=== PATIENT | female | born 1945 | race Caucasian/White ===

== ENCOUNTER 2020-06-26 14:08 | Inpatient (IN) | payer MEDICARE ==
[2020-06-26] MEDS ORDERED: Ondansetron PF 4 MG/2 ML Vial IVP PRN (14:28)
[2020-06-26] MEDS ORDERED: Ondansetron ODT 4 MG TAB PO PRN (14:28)
[2020-06-26] MEDS ORDERED: Acetaminophen 650 MG Suppository PR PRN (14:28)
[2020-06-26] MEDS ORDERED: Magnesium 2 GM/50 ML 2 GM in Premix Bag 1 BAG IVPB SCH (15:00)
[2020-06-26] MEDS: cefTRIAXone\\ROCEPHIN 1 GM in Sodium Chloride 0.9% 100 ML IVPB SCH (15:23)
[2020-06-26 15:29] LABS: Hemoglobin 11.8 g/dL (12.0-16.0); Mean Corpuscular Hemoglobin 30.8 pg (27.0-31.0); Mean Corpuscular Volume 93.5 fL (78.0-98.0); Mean Platelet Volume 6.1 fL (7.4-10.4); Platelet Count 346 thou/uL (130-400); RBC Distribution Width 12.4 % (11.5-14.5); Red Blood Cell (RBC) Count 3.83 mill/uL (4.20-5.40); White Blood Cell (WBC) Count 22.3 thou/uL (4.8-10.8)
[2020-06-26 15:32] LABS: Anion Gap 18 mmol/L (10-20); BUN (Urea Nitrogen) 14 mg/dL (9.8-20.1); Calc. Creatinine Clearance 48 mL/min (70-130); Calcium 8.4 mg/dL (7.8-10.44); Carbon Dioxide 20 mmol/L (23-31); Chloride 104 mmol/L (98-107); Glucose 129 mg/dL (83-110); Magnesium 1.9 mg/dL (1.6-2.6); Sodium 139 mmol/L (136-145)
[2020-06-26 15:37] LABS: Potassium 2.9 mmol/L (3.5-5.1)
[2020-06-26 15:40] LABS: Band 6 % (5-11); Lymphocytes 5 % (21-51); MDiff Complete? YES; Monocytes 1 % (0-10); Neutrophil 88 % (42-75); Platelet Morphology Comment Appears Adequate; RBC Morphology Normal
[2020-06-26] MEDS: Sodium Chloride 0.9% 1,000 ML IV SCH (16:34)
[2020-06-26] MEDS ORDERED: Electrolyte Replacement Protocol FS SCH (16:45)
[2020-06-26] MEDS ORDERED: Potassium Phosphate 30 MMOL in Sodium Chloride 0.9% 250 ML 250 ML IVPB SCH (17:00)
[2020-06-26 22:27] LABS: SARS-CoV-2 PCR by NAA Not Detected (NotDetected)
[2020-06-27 04:58] LABS: #Eosinphils 0.1 thou/uL (0.0-0.7); #Lymphocytes 1.3 thou/uL (1.20-3.40); #Monocytes 0.4 thou/uL (0.11-0.59); %Basophils 0.4 % (0.0-1.0); %Eosinophils 0.7 % (0.0-10.0); %Lymphocytes 11.7 % (21.0-51.0); %Monocytes 3.6 % (0.0-10.0); %Neutrophils 83.5 % (42.0-75.0); Hemoglobin 10.9 g/dL (12.0-16.0); Mean Corpuscular HGB CONC 33.8 g/dL (32.0-36.0); Mean Corpuscular Hemoglobin 31.7 pg (27.0-31.0); Mean Corpuscular Volume 93.8 fL (78.0-98.0); Mean Platelet Volume 6.2 fL (7.4-10.4); Platelet Count 341 thou/uL (130-400); RBC Distribution Width 12.6 % (11.5-14.5); Red Blood Cell (RBC) Count 3.45 mill/uL (4.20-5.40); White Blood Cell (WBC) Count 10.8 thou/uL (4.8-10.8)
[2020-06-27 05:11] LABS: Anion Gap 16 mmol/L (10-20); BUN (Urea Nitrogen) 11 mg/dL (9.8-20.1); Calc. Creatinine Clearance 54 mL/min (70-130); Calcium 7.8 mg/dL (7.8-10.44); Carbon Dioxide 19 mmol/L (23-31); Chloride 108 mmol/L (98-107); Glucose 105 mg/dL (83-110); Sodium 140 mmol/L (136-145)
[2020-06-27 05:13] LABS: Phosphorus 2.8 mg/dL (2.3-4.7)
[2020-06-27 05:14] LABS: ALT (SGPT) 14 U/L (8-55); AST (SGOT) 30 U/L (5-34); Albumin 3.2 g/dL (3.4-4.8); Alkaline Phosphatase 43 U/L (40-110); Bilirubin, Direct 0.1 mg/dL (0.1-0.3); Bilirubin, Total 0.3 mg/dL (0.2-1.2); Magnesium 2.2 mg/dL (1.6-2.6); Protein, Total 5.2 g/dL (5.8-8.1)
[2020-06-27] MEDS: Potassium Chloride 20 MEQ in Premix Bag 1 BAG IVPB SCH ×2 (06:40→09:04)
[2020-06-27] MEDS ORDERED: Potassium Chloride 20 MEQ TAB PO SCH (09:00)
[2020-06-27] MEDS ORDERED: FLU VACC QS2020-21(65YR UP)/PF 240 MCG/0.7 ML SYRINGE IM ONE (09:00)
[2020-06-27] MEDS: Sodium Chloride 0.9% 1,000 ML IV SCH ×2 (09:14→22:06)
[2020-06-27] MEDS: Acetaminophen 325 MG TAB PO PRN (11:26)
[2020-06-27] MEDS ORDERED: Promethazine HCl 12.5 MG in Sodium Chloride 0.9% 50 ML IVPB PRN (12:42)
[2020-06-27] MEDS ORDERED: Pantoprazole 40 MG VIAL IVP SCH (13:15)
[2020-06-27] MEDS ORDERED: Docusate 100 MG CAP PO SCH (13:15)
[2020-06-27] MEDS ORDERED: Enoxaparin Sodium 40 MG/0.4 ML SYRINGE SC SCH (13:15)
[2020-06-27] MEDS ORDERED: Metamucil PACK PO SCH (13:15)
[2020-06-27 13:45] LABS: Anion Gap 18 mmol/L (10-20); BUN (Urea Nitrogen) 9 mg/dL (9.8-20.1); Calc. Creatinine Clearance 59 mL/min (70-130); Calcium 7.7 mg/dL (7.8-10.44); Carbon Dioxide 16 mmol/L (23-31); Chloride 105 mmol/L (98-107); Glucose 109 mg/dL (83-110); Potassium 4.4 mmol/L (3.5-5.1); Sodium 135 mmol/L (136-145)
[2020-06-27] MEDS: cefTRIAXone\\ROCEPHIN 1 GM in Sodium Chloride 0.9% 100 ML IVPB SCH (16:04)
[2020-06-27] MEDS ORDERED: Dronabinol 2.5 MG CAP PO SCH (16:30)
[2020-06-27] MEDS ORDERED: diphenhydrAMINE 50 MG/ML VIAL IVP SCH (19:45)
[2020-06-27] MEDS ORDERED: methylPREDNISolone Sod Succ 40 MG VIAL IVP SCH (19:45)
[2020-06-27] MEDS: Docusate 100 MG CAP PO SCH (22:02)
[2020-06-28 02:53] LABS: Bacteria/HPF None Seen HPF (None Seen); Bilirubin Negative (Negative); Blood, Urine Negative (Negative); Clarity Clear (Clear); Glucose, Urine (Dipstick) Normal (Negative); Ketone, Urine 40 mg/dL (Negative); Leukocyte 500 Leu/uL (Negative); Nitrite Negative (Negative); Protein, Urine (Dipstick) 30 mg/dL (Neg-Trace); Specific Gravity, Urine 1.021 (1.002-1.036); Squamous Epithelial 0-3 HPF (0-3); Urobilinogen Normal mg/dL (Less than 2); WBC/HPF 21-50 HPF (0-3)
[2020-06-28 04:50] LABS: #Lymphocytes 0.5 thou/uL (1.20-3.40); #Monocytes 0.1 thou/uL (0.11-0.59); #Neutrophils 10.1 thou/uL (1.40-6.50); %Eosinophils 0.1 % (0.0-10.0); %Lymphocytes 4.9 % (21.0-51.0); %Monocytes 0.5 % (0.0-10.0); %Neutrophils 94.5 % (42.0-75.0); Hemoglobin 10.9 g/dL (12.0-16.0); Mean Corpuscular HGB CONC 34.7 g/dL (32.0-36.0); Mean Corpuscular Hemoglobin 32.8 pg (27.0-31.0); Mean Corpuscular Volume 94.3 fL (78.0-98.0); Platelet Count 270 thou/uL (130-400); RBC Distribution Width 12.8 % (11.5-14.5); Red Blood Cell (RBC) Count 3.33 mill/uL (4.20-5.40); White Blood Cell (WBC) Count 10.6 thou/uL (4.8-10.8)
[2020-06-28 05:11] LABS: Anion Gap 14 mmol/L (10-20); BUN (Urea Nitrogen) 7 mg/dL (9.8-20.1); Calc. Creatinine Clearance 65 mL/min (70-130); Calcium 7.4 mg/dL (7.8-10.44); Carbon Dioxide 19 mmol/L (23-31); Chloride 107 mmol/L (98-107); Glucose 137 mg/dL (83-110); Magnesium 1.5 mg/dL (1.6-2.6); Potassium 3.9 mmol/L (3.5-5.1); Sodium 136 mmol/L (136-145)
[2020-06-28 05:20] LABS: Phosphorus 2.1 mg/dL (2.3-4.7)
[2020-06-28] MEDS ORDERED: Magnesium 2 GM/50 ML 2 GM in Premix Bag 1 BAG IVPB SCH (06:30)
[2020-06-28] MEDS: Sodium Chloride 0.9% 1,000 ML IV SCH ×2 (07:29→21:16)
[2020-06-28] MEDS: Pantoprazole 40 MG VIAL IVP SCH (08:24)
[2020-06-28] MEDS: Enoxaparin Sodium 40 MG/0.4 ML SYRINGE SC SCH (08:25)
[2020-06-28] MEDS: Docusate 100 MG CAP PO SCH ×2 (08:25→21:15)
[2020-06-28] MEDS: Famotidine/PF 20 mg/2ml Vial SLOW IVP SCH (08:25)
[2020-06-28] MEDS: Metamucil PACK PO SCH (08:26)
[2020-06-28] MEDS ORDERED: Sodium Phosphate 30 MMOL in Sodium Chloride 0.9% 250 ML 250 ML IVPB SCH (08:45)
[2020-06-28] MEDS ORDERED: Magnesium Sulfate 2 GM in Sodium Chloride 0.9% 100 ML IVPB SCH (08:45)
[2020-06-28] MEDS: MEROPENEM 1 GM/50 ML 1 GM in Premix Bag 1 BAG IVPB SCH ×2 (10:21→17:49)
[2020-06-28] MEDS: Lorazepam 2 MG/ML VIAL SLOW IVP PRN (20:52)
[2020-06-28] MEDS ORDERED: Sodium Chloride 0.9% 500 ML IV SCH (22:45)
[2020-06-29] MEDS ORDERED: Sodium Chloride 0.9% 500 ML IV SCH ×2 (01:30→21:00)
[2020-06-29] MEDS ORDERED: Metoprolol Tartrate 5 MG/5 ML VIAL IVP SCH ×2 (01:30→18:45)
[2020-06-29] MEDS: MEROPENEM 1 GM/50 ML 1 GM in Premix Bag 1 BAG IVPB SCH ×3 (03:29→17:29)
[2020-06-29 04:51] LABS: #Eosinphils 0.5 thou/uL (0.0-0.7); #Lymphocytes 0.7 thou/uL (1.20-3.40); #Monocytes 0.3 thou/uL (0.11-0.59); #Neutrophils 9.3 thou/uL (1.40-6.50); %Basophils 0.1 % (0.0-1.0); %Eosinophils 4.7 % (0.0-10.0); %Lymphocytes 6.7 % (21.0-51.0); %Monocytes 2.6 % (0.0-10.0); %Neutrophils 85.9 % (42.0-75.0); Hemoglobin 11.1 g/dL (12.0-16.0); Mean Corpuscular HGB CONC 33.7 g/dL (32.0-36.0); Mean Corpuscular Hemoglobin 32.2 pg (27.0-31.0); Mean Corpuscular Volume 95.4 fL (78.0-98.0); Platelet Count 267 thou/uL (130-400); RBC Distribution Width 12.8 % (11.5-14.5); Red Blood Cell (RBC) Count 3.47 mill/uL (4.20-5.40); White Blood Cell (WBC) Count 10.8 thou/uL (4.8-10.8)
[2020-06-29 05:01] LABS: Anion Gap 13 mmol/L (10-20); BUN (Urea Nitrogen) 9 mg/dL (9.8-20.1); Calc. Creatinine Clearance 65 mL/min (70-130); Calcium 7.6 mg/dL (7.8-10.44); Carbon Dioxide 21 mmol/L (23-31); Chloride 106 mmol/L (98-107); Glucose 110 mg/dL (83-110); Magnesium 1.7 mg/dL (1.6-2.6); Sodium 137 mmol/L (136-145)
[2020-06-29 05:03] LABS: Phosphorus 1.9 mg/dL (2.3-4.7)
[2020-06-29] MEDS ORDERED: PHOS-NAK 1 PKT PACK PO SCH (06:00)
[2020-06-29] MEDS ORDERED: Potassium Chloride 20 MEQ TAB PO SCH (06:00)
[2020-06-29] MEDS ORDERED: Potassium Bicarbonate/Cit Ac 20 MEQ TAB PO SCH (06:15)
[2020-06-29] MEDS ORDERED: Magnesium 2 GM/50 ML 2 GM in Premix Bag 1 BAG IVPB SCH ×2 (06:45→08:45)
[2020-06-29] MEDS: Pantoprazole 40 MG VIAL IVP SCH (08:24)
[2020-06-29] MEDS: Famotidine/PF 20 mg/2ml Vial SLOW IVP SCH (08:24)
[2020-06-29] MEDS: PHOS-NAK 1 PKT PACK PO SCH ×2 (08:24→12:44)
[2020-06-29] MEDS: Docusate 100 MG CAP PO SCH ×2 (08:24→21:14)
[2020-06-29 09:14] LABS: Lactic Acid 2.6 mmol/L (0.5-2.2)
[2020-06-29] MEDS: Metamucil PACK PO SCH (09:51)
[2020-06-29] MEDS: Potassium Chloride 10 MEQ in Premix Bag 1 BAG IVPB SCH ×4 (09:52→16:03)
[2020-06-29] MEDS: Enoxaparin Sodium 40 MG/0.4 ML SYRINGE SC SCH (09:55)
[2020-06-29] MEDS: Sodium Chloride 0.9% 1,000 ML IV SCH ×3 (10:10→22:55)
[2020-06-29 15:22] LABS: Lactic Acid 2.2 mmol/L (0.5-2.2)
[2020-06-29] MEDS ORDERED: diphenhydrAMINE 10 MG in Sodium Chloride 0.9% 50 ML IVPB SCH (16:15)
[2020-06-29] MEDS: Lorazepam 2 MG/ML VIAL SLOW IVP PRN (17:31)
[2020-06-29 19:02] LABS: Anion Gap 15 mmol/L (10-20); BUN (Urea Nitrogen) 7 mg/dL (9.8-20.1); CK (CPK) 124 U/L (29-168); Calc. Creatinine Clearance 66 mL/min (70-130); Calcium 7.4 mg/dL (7.8-10.44); Carbon Dioxide 21 mmol/L (23-31); Chloride 103 mmol/L (98-107); Glucose 103 mg/dL (83-110); Potassium 3.8 mmol/L (3.5-5.1); Sodium 135 mmol/L (136-145); Troponin I 0.184 ng/mL (< 0.028)
[2020-06-29] MEDS ORDERED: methylPREDNISolone Sod Succ/PF 125 MG/2 ML VIAL IVP SCH (20:00)
[2020-06-29] MEDS ORDERED: diphenhydrAMINE 50 MG/ML VIAL IVP SCH (20:15)
[2020-06-29 20:26] LABS: Free T4 (Free Thyroxine) 1.16 ng/dL (0.70-1.48); Thyroid Stimulating Hormone 3.3239 uIU/mL (0.35-4.94)
[2020-06-29 20:43] LABS: Lactic Acid 2.7 mmol/L (0.5-2.2)
[2020-06-29] MEDS ORDERED: EPINEPHrine 1 MG/ML AMP IM ONE (21:15)
[2020-06-29 21:52] LABS: Lactic Acid 2.4 mmol/L (0.5-2.2)
[2020-06-29] MEDS ORDERED: Sodium Chloride 0.9% 1,000 ML IV SCH (22:30)
[2020-06-30 01:26] LABS: Troponin I 0.231 ng/mL (< 0.028)
[2020-06-30 05:00] LABS: #Lymphocytes 0.4 thou/uL (1.20-3.40); #Monocytes 0.1 thou/uL (0.11-0.59); #Neutrophils 7.3 thou/uL (1.40-6.50); %Eosinophils 0.4 % (0.0-10.0); %Lymphocytes 5.4 % (21.0-51.0); %Monocytes 0.6 % (0.0-10.0); %Neutrophils 93.6 % (42.0-75.0); Mean Corpuscular HGB CONC 34.3 g/dL (32.0-36.0); Mean Corpuscular Hemoglobin 32.5 pg (27.0-31.0); Mean Corpuscular Volume 94.7 fL (78.0-98.0); Mean Platelet Volume 6.4 fL (7.4-10.4); Platelet Count 213 thou/uL (130-400); Red Blood Cell (RBC) Count 2.77 mill/uL (4.20-5.40); White Blood Cell (WBC) Count 7.8 thou/uL (4.8-10.8)
[2020-06-30 05:24] LABS: Anion Gap 12 mmol/L (10-20); BUN (Urea Nitrogen) 6 mg/dL (9.8-20.1); Calc. Creatinine Clearance 69 mL/min (70-130); Calcium 6.4 mg/dL (7.8-10.44); Carbon Dioxide 21 mmol/L (23-31); Chloride 105 mmol/L (98-107); Glucose 150 mg/dL (83-110); Sodium 135 mmol/L (136-145)
[2020-06-30 05:31] LABS: Potassium 2.9 mmol/L (3.5-5.1)
[2020-06-30] MEDS: Sodium Chloride 0.9% 1,000 ML IV SCH ×4 (05:35→23:57)
[2020-06-30] MEDS ORDERED: Magnesium 2 GM/50 ML 2 GM in Premix Bag 1 BAG IVPB SCH ×2 (06:15→11:15)
[2020-06-30] MEDS ORDERED: Potassium Chloride 40 MEQ in Sodium Chloride 0.9% 250 ML 250 ML IVPB SCH (06:30)
[2020-06-30] MEDS ORDERED: Potassium Chloride 20 MEQ TAB PO SCH (08:00)
[2020-06-30] MEDS ORDERED: Calcium Gluconate 4.6 MEQ in Sodium Chloride 0.9% 100 ML IVPB SCH (08:03)
[2020-06-30] MEDS: Pantoprazole 40 MG VIAL IVP SCH (08:50)
[2020-06-30] MEDS: Docusate 100 MG CAP PO SCH ×2 (08:50→20:32)
[2020-06-30] MEDS: Famotidine/PF 20 mg/2ml Vial SLOW IVP SCH (08:50)
[2020-06-30] MEDS: Enoxaparin Sodium 40 MG/0.4 ML SYRINGE SC SCH (08:50)
[2020-06-30] MEDS: Metamucil PACK PO SCH (08:51)
[2020-06-30 09:27] LABS: Lactic Acid 1.9 mmol/L (0.5-2.2)
[2020-06-30 09:29] LABS: Troponin I 0.137 ng/mL (< 0.028)
[2020-06-30] MEDS: Acetaminophen 325 MG TAB PO PRN (09:35)
[2020-06-30] MEDS: Potassium Chloride 10 MEQ in Premix Bag 1 BAG IVPB SCH ×4 (10:40→14:28)
[2020-06-30] MEDS ORDERED: Midodrine HCl 5 MG TAB PO SCH ×4 (10:40→16:45)
[2020-06-30] MEDS ORDERED: Magnesium Sulfate 2 GM in Sodium Chloride 0.9% 100 ML IVPB SCH (10:45)
[2020-06-30] MEDS ORDERED: Sodium Chloride 0.9% 500 ML IV SCH (16:15)
[2020-06-30] MEDS: Midodrine HCl 5 MG TAB PO SCH (20:33)
[2020-07-01] MEDS: Acetaminophen 325 MG TAB PO PRN ×2 (01:04→10:20)
[2020-07-01] MEDS: Lorazepam 2 MG/ML VIAL SLOW IVP PRN ×2 (02:29→22:00)
[2020-07-01] MEDS: Sodium Chloride 0.9% 1,000 ML IV SCH ×3 (05:58→19:10)
[2020-07-01] MEDS: Enoxaparin Sodium 40 MG/0.4 ML SYRINGE SC SCH (08:21)
[2020-07-01] MEDS: Pantoprazole 40 MG VIAL IVP SCH (08:21)
[2020-07-01] MEDS: Famotidine/PF 20 mg/2ml Vial SLOW IVP SCH (08:21)
[2020-07-01] MEDS: Midodrine HCl 5 MG TAB PO SCH ×3 (08:21→21:00)
[2020-07-01] MEDS: Docusate 100 MG CAP PO SCH ×2 (08:22→21:00)
[2020-07-01] MEDS: Metamucil PACK PO SCH (08:22)
[2020-07-01 08:42] LABS: #Eosinphils 0.5 thou/uL (0.0-0.7); #Monocytes 0.2 thou/uL (0.11-0.59); #Neutrophils 5.6 thou/uL (1.40-6.50); %Basophils 0.1 % (0.0-1.0); %Eosinophils 7.1 % (0.0-10.0); %Lymphocytes 13.3 % (21.0-51.0); %Monocytes 3.2 % (0.0-10.0); %Neutrophils 76.4 % (42.0-75.0); Hemoglobin 10.9 g/dL (12.0-16.0); Mean Corpuscular HGB CONC 33.2 g/dL (32.0-36.0); Mean Corpuscular Volume 96.3 fL (78.0-98.0); Mean Platelet Volume 5.9 fL (7.4-10.4); Platelet Count 310 thou/uL (130-400); RBC Distribution Width 13.2 % (11.5-14.5); White Blood Cell (WBC) Count 7.3 thou/uL (4.8-10.8)
[2020-07-01 08:59] LABS: Anion Gap 13 mmol/L (10-20); BUN (Urea Nitrogen) 4 mg/dL (9.8-20.1); Calc. Creatinine Clearance 85 mL/min (70-130); Carbon Dioxide 17 mmol/L (23-31); Chloride 109 mmol/L (98-107); Glucose 129 mg/dL (83-110); Potassium 4.1 mmol/L (3.5-5.1); Sodium 135 mmol/L (136-145)
[2020-07-01] MEDS: methylPREDNISolone Sod Succ 40 MG VIAL IVP SCH (21:15)
[2020-07-02] MEDS: methylPREDNISolone Sod Succ 40 MG VIAL IVP SCH ×2 (06:18→15:11)
[2020-07-02] MEDS: Enoxaparin Sodium 40 MG/0.4 ML SYRINGE SC SCH (08:53)
[2020-07-02] MEDS: Docusate 100 MG CAP PO SCH ×2 (08:53→21:17)
[2020-07-02] MEDS: Metamucil PACK PO SCH (08:53)
[2020-07-02] MEDS: Midodrine HCl 5 MG TAB PO SCH ×3 (08:53→21:17)
[2020-07-02] MEDS: Pantoprazole 40 MG VIAL IVP SCH (08:54)
[2020-07-02] MEDS: Sodium Chloride 0.9% 1,000 ML IV SCH (15:11)
[2020-07-02] MEDS ORDERED: predniSONE 20 MG TAB PO SCH (16:15)
[2020-07-02] MEDS: Lorazepam 2 MG/ML VIAL SLOW IVP PRN (21:17)
[2020-07-03] MEDS ORDERED: predniSONE 5 MG TAB PO SCH (08:00)
[2020-07-03] MEDS: Enoxaparin Sodium 40 MG/0.4 ML SYRINGE SC SCH (08:25)
[2020-07-03] MEDS: Docusate 100 MG CAP PO SCH ×2 (08:25→20:12)
[2020-07-03] MEDS: Midodrine HCl 5 MG TAB PO SCH ×3 (08:25→20:11)
[2020-07-03] MEDS: Pantoprazole 40 MG VIAL IVP SCH (08:26)
[2020-07-03 10:44] VITALS: BMI 24.5
[2020-07-03] MEDS: Metamucil PACK PO SCH (11:48)
[2020-07-03] MEDS ORDERED: Ondansetron ODT 4 MG TAB PO PRN (20:42)
[2020-07-03] MEDS ORDERED: Lorazepam 1 MG TAB PO PRN (20:43)
[2020-07-04] MEDS: Docusate 100 MG CAP PO SCH (09:41)
[2020-07-04] MEDS: Midodrine HCl 5 MG TAB PO SCH (09:44)
[2020-07-04] MEDS: Metamucil PACK PO SCH (09:45)
[2020-07-04] MEDS: Enoxaparin Sodium 40 MG/0.4 ML SYRINGE SC SCH (09:45)
[2020-07-04 11:17] VITALS: TEMP 98.1
[2020-07-04 17:03] VITALS: BP 103/67
== END 2020-07-04 14:21 | disposition home or self-care (01) | DRG 871 ==
LOC: 2NO 14:08 → IMCU/EMU 06-30 21:50 → T4-A 07-01 20:20
PROVIDERS: ADMIT Internal Medicine; ATTEND Internal Medicine
DX: A41.9 Sepsis, unspecified organism (principal); G93.41 Metabolic encephalopathy; E43 Unspecified severe protein-calorie malnutrition; E87.2 Acidosis; Z68.24 Body mass index [BMI] 24.0-24.9, adult; F05 Delirium due to known physiological condition; D64.9 Anemia, unspecified; N30.00 Acute cystitis without hematuria; Z20.822 Contact with and (suspected) exposure to COVID-19; E86.0 Dehydration; Z96.641 Presence of right artificial hip joint; G30.9 Alzheimer's disease, unspecified; F02.80 Dementia in other diseases classified elsewhere, unspecified severity, without behavioral disturbance, psychotic disturbance, mood disturbance, and anxiety; R11.2 Nausea with vomiting, unspecified; E87.6 Hypokalemia; E83.42 Hypomagnesemia; K80.20 Calculus of gallbladder without cholecystitis without obstruction; R65.20 Severe sepsis without septic shock; L27.1 Localized skin eruption due to drugs and medicaments taken internally; R00.0 Tachycardia, unspecified; T36.1X5A Adverse effect of cephalosporins and other beta-lactam antibiotics, initial encounter; I95.2 Hypotension due to drugs; Z28.82 Immunization not carried out because of caregiver refusal; Z74.01 Bed confinement status; Z87.11 Personal history of peptic ulcer disease; Z79.899 Other long term (current) drug therapy; Z78.1 Physical restraint status
CPT/HCPCS: 36415; 36416; 71045; 74018; 76705; 80048; 80076; 81001; 82550; 83605; 83735; 84100; 84145; 84439; 84443; 84481; 84484; 85025; 87635; 93005; 93010; 93306; C9113; J0171; J0696; J1200; J1650; J2001; J2060; J2185; J2920; J2930; J3475; J3480; J3490; J7050; J7512; Q0162; Q0167; S0028; U0003; U0005